=== PATIENT | male | born 1935 | race Caucasian/White ===

== ENCOUNTER → 2018-03-28 11:58 | Outpatient (CLI) | payer MEDICARE, OTHER, SELFPAY ==
[2018-03-28 12:47] LABS: INR 2.6 (0.9-1.3); Prothrombin Time 28.6 SECONDS (10.1-12.7)
[2018-03-28 12:50] LABS: Add Manual Diff / Slide Review NO; Basophils Percent Auto 0.5 % (0-2); Eosinophils Percent Auto 1.3 % (2-4); Hematocrit 38.5 % (41-53); Hemoglobin 13.3 g/dL (13.5-17.5); Lymphocytes Percent Auto 25.3 % (25-40); Mean Corpuscular HGB Conc 34.5 % (30-36); Mean Corpuscular Hemoglobin 34.6 PG (26-34); Mean Corpuscular Volume 100.4 fL (80-100); Monocytes Percent Auto 7.7 % (3-14); Neutrophils Absolute Auto 5300 /uL (3000-5900); Neutrophils Percent Auto 65.2 % (50-75); Platelet Count 180 X10^3/uL (150-400); Red Blood Cell Count 3.83 X10^6/uL (4.5-5.9); Red Cell Distribution Width 13.1 % (11.6-14.8); White Blood Cell Count 8.1 X10^3/uL (4.5-11.0)
[2018-03-28 13:37] LABS: BUN Creatinine Ratio 29.1 (6-22); Blood Urea Nitrogen 32 mg/dL (9-20); Calcium 9.4 mg/dL (8.4-10.2); Carbon Dioxide 29 mmol/L (22-32); Chloride 102 mmol/L (98-107); Estimated Glomerular Filt Rate > 60.0 mL/min (>60); Glucose 95 mg/dL (80-110); HEMOLYSIS < 15 (0-50); Potassium 4.6 mmol/L (3.4-5.1); Sodium 143 mmol/L (137-145)
== END ==
PROVIDERS: PCP Family Medicine; Visit Provider Podiatrist
DX: Z01.812 Encounter for preprocedural laboratory examination (principal)
CPT/HCPCS: 36415; 80048; 85025; 85610

== ENCOUNTER 2018-04-06 10:28 | Day surgery (SDC) | payer MEDICARE, OTHER, SELFPAY ==
[2018-03-30 09:38] VITALS: BMI 32.2
[2018-04-06 11:08] VITALS: BP 122/71; PULSE 66; RESP 15; TEMP 36.5; O2SAT 99; BMI 29.9
[2018-04-06] MEDS: LACTATED RINGERS 1,000 ML 42 ML IV (12:30)
[2018-04-06] MEDS: CEFAZOLIN VIAL 1 GM in SODIUM CHLORIDE 0.9% 100 ML 200 ML IV (13:20)
--- NOTE | 2018-04-06 13:44 | SUR.OPER ---
Supine on padded OR bed, head on pillow, arms secured on padded arm boards at <90 degrees abduction, right leg is under control of surgeon, left leg is taped over blanket to the table, safety belt at thigh.
[2018-04-06] MEDS: LIDOCAINE 2% INJ SDV 5 ML INJ (13:52)
[2018-04-06] MEDS: BUPIVACAINE 0.5% (PF) VIAL 10 ML INJ (14:04)
[2018-04-06 14:20] VITALS: BP 122/77; PULSE 55; RESP 18; TEMP 36.7; O2SAT 97
--- NOTE | 2018-04-06 14:24 | PM.OP.1 ---
Operative Date/Time/Diagnoses Date of procedure: 04/06/18 Time of procedure: 14:24 Pre-op diagnosis: Chronic toe ulcer, hammertoe, right foot Post-op diagnosis: same Procedure & Clinicians Procedure: Hammertoe repair by DIPJ arthroplasty, 2nd toe Right Hammertoe repair by DIPJ arthroplasty, 3rd toe Right Same procedure as scheduled: Yes Indications: Chronic toe ulcer, contracted hammertoe Surgeon: Anuel Ocasio Click Yes if Unassisted: Yes Anesthesia Type: General and Local Operative Notes Closure Type: primary Specimen(s): none sent Estimated Blood Loss (mL): 3 Blood products transfused: none Procedure in detail: Preoperative diagnosis: Due to the chronic toe ulcerations coupled with 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 No guarantees were made or implied regarding surgical outcome. Operation patient was taken from the day surgery back to the OR on a gurney after having been given IV antibiotic prophylaxis. He was placed on the OR table in the supine position. IV sedation was initially began followed by local anesthetic block of the 2nd and 3rd toes right foot. [place] through the procedure, the patient was moving so much he had to be converted to a general. The right foot was prepped and draped in usual sterile fashion from toes to knee. Procedure 1: hammertoe repair by DIP joint arthroplasty, 2nd toe right foot ([id number]) Attention was directed toward the dorsum of the right 2nd toe. A longitudinal incision of approximately 1.5 cm was placed, just behind the DIP joint. Blunt dissection was carried down to the extensor tendon which was transversely sectioned. The DIP joint was opened and then the distal portion of the head of the intermediate phalanx transversely sectioned with a rongeur and bone cutter. The head of the intermediate phalanx was then removed. The wound was irrigated with antibiotic solution. Extensor tendon was repaired with 4 O Vicryl. The skin was then reapposed with 4 O nylon using simple interrupted and horizontal mattress sutures. Procedure 2: Hammertoe repair by DIP joint arthroplasty, 3rd toe right foot ([id number]) Attention was then directed toward the dorsum of the right 3rd toe. The exact same procedure was then performed on this toe as described above, with no variation in technique or outcome. Both incisions were dressed with sterile compression bandages. Patient tolerated the procedures and anesthesia well without any apparent complications. He left the OR with vital signs stable digital perfusion intact. He will be followed up in the [place] office next week. Complications: none Condition: stable Disposition: PACU Plan for aftercare: FU in my [place] office. Appt already made.
[2018-04-06 14:25] VITALS: BP 118/75; PULSE 63; RESP 17; O2SAT 97
[2018-04-06 14:30] VITALS: BP 127/82; PULSE 60; RESP 13; O2SAT 99
--- NOTE | 2018-04-06 14:31 | P.OP_ITS ---
Operative Date/Time/Diagnoses Date of procedure: 04/06/18 Time of procedure: 14:24 Pre-op diagnosis: Chronic toe ulcer, hammertoe, right foot Post-op diagnosis: same Procedure & Clinicians Procedure: Hammertoe repair by DIPJ arthroplasty, 2nd toe Right Hammertoe repair by DIPJ arthroplasty, 3rd toe Right Same procedure as scheduled: Yes Indications: Chronic toe ulcer, contracted hammertoe Surgeon: Anuel Ocasio Click Yes if Unassisted: Yes Anesthesia Type: General and Local Operative Notes Closure Type: primary Specimen(s): none sent Estimated Blood Loss (mL): 3 Blood products transfused: none Procedure in detail: Preoperative diagnosis: Due to the chronic toe ulcerations coupled with 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 No guarantees were made or implied regarding surgical outcome. Operation patient was taken from the day surgery back to the OR on a gurney after having been given IV antibiotic prophylaxis. He was placed on the OR table in the supine position. IV sedation was initially began followed by local anesthetic block of the 2nd and 3rd toes right foot. [place] through the procedure, the patient was moving so much he had to be converted to a general. The right foot was prepped and draped in usual sterile fashion from toes to knee. Procedure 1: hammertoe repair by DIP joint arthroplasty, 2nd toe right foot ( [id number]) Attention was directed toward the dorsum of the right 2nd toe. A longitudinal incision of approximately 1.5 cm was placed, just behind the DIP joint. Blunt dissection was carried down to the extensor tendon which was transversely sectioned. The DIP joint was opened and then the distal portion of the head of the intermediate phalanx transversely sectioned with a rongeur and bone cutter. The head of the intermediate phalanx was then removed. The wound was irrigated with antibiotic solution. Extensor tendon was repaired with 4 O Vicryl. The skin was then reapposed with 4 O nylon using simple interrupted and horizontal mattress sutures. Procedure 2: Hammertoe repair by DIP joint arthroplasty, 3rd toe right foot ( [id number]) Attention was then directed toward the dorsum of the right 3rd toe. The exact same procedure was then performed on this toe as described above, with no variation in technique or outcome. Both incisions were dressed with sterile compression bandages. Patient tolerated the procedures and anesthesia well without any apparent complications. He left the OR with vital signs stable digital perfusion intact. He will be followed up in the [place] office next week. Complications: none Condition: stable Disposition: PACU Plan for aftercare: FU in my [place] office. Appt already made.
[2018-04-06 15:15] VITALS: BP 128/79; PULSE 79; RESP 18; TEMP 36.6; O2SAT 97
== END 2018-04-06 15:20 ==
LOC: OR 10:29
PROVIDERS: PCP Family Medicine; Visit Provider Podiatrist
PROC: (CPT 28285; principal; 2018-04-06 12:15)
DX: M20.41 Other hammer toe(s) (acquired), right foot (principal); L97.511 Non-pressure chronic ulcer of other part of right foot limited to breakdown of skin; G62.9 Polyneuropathy, unspecified; Z79.01 Long term (current) use of anticoagulants
CPT/HCPCS: 28285 ×2; J0690; J2704

== ENCOUNTER → 2019-03-01 10:13 | Outpatient (CLI) | payer MEDICARE, OTHER, SELFPAY | PROVIDERS: PCP Family Medicine; Visit Provider Family Medicine | DX: G60.3 Idiopathic progressive neuropathy (principal); L97.515 Non-pressure chronic ulcer of other part of right foot with muscle involvement without evidence of necrosis; I73.9 Peripheral vascular disease, unspecified; I27.20 Pulmonary hypertension, unspecified | CPT/HCPCS: 11042; 73630; 87070; 87077; 87147; 87205; 99213; 99214 ==

== ENCOUNTER → 2019-03-01 12:03 | Outpatient (CLI) | payer MEDICARE, OTHER, SELFPAY ==
--- NOTE | 2019-03-01 | DI.RAD.S_ITS ---
PROCEDURE: XR FOOT RT MIN 3V INDICATIONS: L97.519 TECHNIQUE: 3 nonweightbearing views of the foot were acquired. COMPARISON: None. FINDINGS: Bones: No acute fractures. Hallux valgus angulation of the right great toe. Degenerative changes of the first metatarsophalangeal joint, third metatarsophalangeal joint, dorsal right mid foot, and tibiotalar joint. Mild periarticular subchondral cystic change involving the head of the right first and fifth metatarsals as well as the base of the first toe proximal phalanx. No cortical disruption. No definite osseous erosions. Overall, normal bone mineralization. Prominent plantar calcaneal and retrocalcaneal spurs. No suspicious bony lesions. Soft tissues: No tibiotalar joint effusion. Achilles tendon appears normal. There are vascular calcifications. IMPRESSION: 1. Right foot without acute osseous abnormalities. 2. Degenerative changes of the right ankle and foot as described above with subchondral cystic change versus possible erosions involving the head of the right first and fifth metatarsals as well as the base of the first toe proximal phalanx. No periarticular osteopenia. These findings may be related to chronic degenerative changes although an inflammatory arthropathy may have a similar appearance. 3. Plantar calcaneal and retrocalcaneal enthesopathy. Dictated by: John Mcdonald M.D. on 03/01/2019 at 14:39 Approved by: John Mcdonald M.D. on 03/01/2019 at 14:44
== END ==
PROVIDERS: PCP Family Medicine; Visit Provider Family Medicine
DX: L97.519 Non-pressure chronic ulcer of other part of right foot with unspecified severity (principal); G90.09 Other idiopathic peripheral autonomic neuropathy; M77.31 Calcaneal spur, right foot
CPT/HCPCS: 73630

== ENCOUNTER → 2019-03-08 11:14 | Outpatient (CLI) | payer MEDICARE, OTHER, SELFPAY | PROVIDERS: PCP Family Medicine; Visit Provider Family Medicine | DX: G60.9 Hereditary and idiopathic neuropathy, unspecified (principal); L97.515 Non-pressure chronic ulcer of other part of right foot with muscle involvement without evidence of necrosis; I73.9 Peripheral vascular disease, unspecified | CPT/HCPCS: 11042 ==

== ENCOUNTER → 2019-03-19 08:44 | Outpatient (CLI) | payer MEDICARE, OTHER, SELFPAY | PROVIDERS: PCP Family Medicine; Visit Provider Family Medicine | DX: G60.9 Hereditary and idiopathic neuropathy, unspecified (principal); L97.515 Non-pressure chronic ulcer of other part of right foot with muscle involvement without evidence of necrosis; I73.9 Peripheral vascular disease, unspecified | CPT/HCPCS: 11042 ==

== ENCOUNTER → 2019-03-19 10:03 | Outpatient (CLI) | payer MEDICARE, OTHER, SELFPAY ==
[2019-03-19 10:23] LABS: Add Manual Diff / Slide Review NO; Basophils Absolute Auto 100 /uL (0-100); Basophils Percent Auto 0.8 % (0-2); Eosinophils Absolute Auto 200 /uL (0-450); Eosinophils Percent Auto 1.4 % (2-4); Hematocrit 29.1 % (41-53); Hemoglobin 9.7 g/dL (13.5-17.5); Lymphocytes Absolute Auto 2000 /uL (1100-4500); Lymphocytes Percent Auto 17.2 % (25-40); Mean Corpuscular HGB Conc 33.5 % (30-36); Mean Corpuscular Volume 98.4 fL (80-100); Monocytes Absolute Auto 800 /uL (0-900); Monocytes Percent Auto 6.7 % (3-14); Neutrophils Absolute Auto 8800 /uL (1500-7000); Neutrophils Percent Auto 73.9 % (50-75); Platelet Count 261 X10^3/uL (150-400); Red Blood Cell Count 2.95 X10^6/uL (4.5-5.9); Red Cell Distribution Width 17.1 % (11.6-14.8); White Blood Cell Count 11.9 X10^3/uL (4.5-11.0)
[2019-03-19 10:30] LABS: INR 1.2 (0.9-1.3); Prothrombin Time 14.4 SECONDS (10.1-12.7)
== END ==
PROVIDERS: Family Provider Family Medicine; PCP Family Medicine; Visit Provider Internal Medicine
DX: D62 Acute posthemorrhagic anemia (principal)
CPT/HCPCS: 36415; 85025; 85610

== ENCOUNTER 2019-03-20 07:16 | Day surgery (SDC) | payer MEDICARE, OTHER, SELFPAY ==
--- NOTE | 2019-03-20 | PATH_ITS ---
[facility] Accession Number: [id number] . 01 Material submitted: . colon - TRANSVERSE COLON POLYP . 01 Clinical history: . COLONOSCOPY . 02 Diagnosis: Transverse Colon, Polyp, Biopsy: Tubular adenoma. V 03/21/2019 1335 Local . 02 Electronically signed: . Bessie Looney MD, Pathologist NPI- [id number] . 01 Gross description: . TRANSVERSE COLON POLYP: Received in formalin are multiple fragment(s) of benjamin, soft tissue measuring 0.1 x 0.1 x 0.1 cm to 0.6 x 0.6 x 0.5 cm which is entirely submitted and submitted entirely in 1 cassette(s) /[facility] [place] 03/20/2019 1914 Local . 02 Pathologist provided ICD-10: D12.3 . 02 CPT . 705815 Performed at: 01 [facility] [address], [place], [place] [id number] MD Shimon Byers MD Phone: [phone] Performed at: [address] [facility] [address] [place], [place] [id number] MD Bessie Looney MD Phone: [phone]
[2019-03-20 07:49] VITALS: BP 110/68; PULSE 79; RESP 16; TEMP 36.6; O2SAT 99; BMI 28.5
[2019-03-20] MEDS: SODIUM CHLORIDE 0.9% 1,000 ML 42 ML IV (07:49)
--- NOTE | 2019-03-20 08:36 | PM.PREOP ---
Pre-operative Note Interval Note History & Physical reviewed/Exam performed by Physician: Yes Changes to H&P: No H&P completed within 30 days and has changed as indicated here:: )ff coumadin for 7 days ASA Class (for procedural sedation): III
--- NOTE | 2019-03-20 08:49 | PM.OP.ENDO ---
Operative Date/Time/Diagnoses Date of procedure: 03/20/19 Time of procedure: 08:49 Pre-op diagnosis: See indication and findings Procedure & Clinicians Study performed: Colonoscopy Same procedure as scheduled: Yes Indications: Hematochezia on Coumadin Surgeon: Silviano Hart Procedure Notes Procedure in detail: After informed consent was obtained the patient was placed in the left lateral decubitus position. The video colonoscope was introduced in the rectum slowly advanced to the cecum. Preparation was fair to good. On slow withdrawal mucosa was carefully examined. The scope was removed. The patient tolerated procedure well. Blood loss none Complications none Findings 1. Extensive diverticulosis throughout the entire colon but particularly present on the left side. 2. 6 mm polyp in the proximal transverse colon cold snared and removed completely 3. Moderate internal hemorrhoids on retroflexed view. Again most likely that Mr. Rollins had a diverticular bleed. He would be at risk for further bleeding on medication. I will be in touch with Dr. Corona regarding his case but for the time being I would just keep him off of his Coumadin for least a week. CC: Dr. Corona
[2019-03-20] MEDS: fentaNYL 250 MCG/5 ML INJ IV (08:54)
[2019-03-20] MEDS: MIDAZOLAM 5 MG/5 ML VIAL IV (08:54)
[2019-03-20 08:56] VITALS: BP 106/73; PULSE 73; RESP 15; TEMP 36.2; O2SAT 99
[2019-03-20 09:01] VITALS: BP 110/74; PULSE 83; RESP 15; O2SAT 99
[2019-03-20 09:06] VITALS: BP 108/75; PULSE 74; RESP 12; O2SAT 99
[2019-03-20 09:15] VITALS: BP 109/77; PULSE 70; RESP 16; TEMP 36.2; O2SAT 99
[2019-03-20 09:36] VITALS: BP 122/77; PULSE 79; RESP 16; TEMP 36.6; O2SAT 97
== END 2019-03-20 09:41 | disposition home or self-care (01) ==
PROVIDERS: Family Provider Family Medicine; PCP Family Medicine; Visit Provider Internal Medicine Gastroenterology
PROC: 0DJD8ZZ Inspection of Lower Intestinal Tract, Via Natural or Artificial Opening Endoscopic (ICD-10-PCS; CPT 45378; principal; 2019-03-20 08:30)
DX: K92.1 Melena (principal); K64.8 Other hemorrhoids; K57.30 Diverticulosis of large intestine without perforation or abscess without bleeding; D12.3 Benign neoplasm of transverse colon
CPT/HCPCS: 45385; J2250; J3010

== ENCOUNTER → 2019-03-26 08:52 | Outpatient (CLI) | payer MEDICARE, OTHER, SELFPAY | PROVIDERS: Family Provider Family Medicine; PCP Family Medicine; Visit Provider Family Medicine | DX: G60.3 Idiopathic progressive neuropathy (principal); L97.515 Non-pressure chronic ulcer of other part of right foot with muscle involvement without evidence of necrosis; I73.9 Peripheral vascular disease, unspecified | CPT/HCPCS: 11042 ==

== ENCOUNTER → 2019-03-26 10:10 | Outpatient (CLI) | payer MEDICARE, OTHER, SELFPAY ==
--- NOTE | 2019-03-26 | DI.US.S_ITS ---
PROCEDURE: US ARTERIAL DUPLEX LE RT INDICATIONS: PERIPHERAL VASCULAR DISEASE, UNSPECIFIED TECHNIQUE: Color and pulse Doppler interrogation was performed of the right lower extremity arterial system, with image documentation. COMPARISON: None. FINDINGS: Normal-appearing, triphasic and biphasic waveforms are seen throughout. The flow velocities are likewise within normal limits. No focal area of increased flow velocity is seen to suggest a focal stenosis. Antegrade flow is confirmed to the distal aspects of each of the trifurcation vessels. Atherosclerotic plaque can be seen, which is most prominent within the right femoral artery and distal posterior tibial artery. IMPRESSION: No hemodynamically significant stenosis can be seen. Dictated by: Richie Desir M.D. on 03/26/2019 at 15:48 Approved by: Richie Desir M.D. on 03/26/2019 at 15:49
== END ==
PROVIDERS: Family Provider Family Medicine; PCP Family Medicine; Visit Provider Family Medicine
DX: I73.9 Peripheral vascular disease, unspecified (principal); L97.515 Non-pressure chronic ulcer of other part of right foot with muscle involvement without evidence of necrosis; G60.3 Idiopathic progressive neuropathy
CPT/HCPCS: 11042; 93926

== ENCOUNTER → 2019-04-02 06:24 | Outpatient (CLI) | payer MEDICARE, OTHER, SELFPAY ==
--- NOTE | 2019-04-02 | DI.MRI.S_ITS ---
PROCEDURE: MR FOOT RT WO/W CON INDICATIONS: Non-pressure chronic ulcer of other part of right foot TECHNIQUE: Noncontrast sagittal T1 spin echo and T2 fast spin echo with fat saturation, long-axis T1 spin echo and T2 fast spin echo with fat saturation; short-axis T1 spin echo, proton density fast spin echo, and T2 fast spin echo with fat saturation through the forefoot. Post-contrast short axis, long axis, and sagittal T1 spin echo with fat saturation through the forefoot. COMPARISON: [facility], CR, XR FOOT 3+ VIEWS RIGHT, 03/21/2018, 11:46. [facility], CR, XR FOOT RT MIN 3V, 03/01/2019, 12:09. FINDINGS: Image quality: Excellent. Bones and joints: No suspicious osseous enhancement. No definite marrow edema is noted. Osteoarthritic changes are noted throughout forefoot joints more prominent at first MTP and interphalangeal joints. Medial deviation and flexion at the fourth PIP joint is seen. Flexion at second through fifth DIP joints also noted. No definite cortical disruption or bony erosion is seen. No intraosseous lesions. Soft tissues: No suspicious soft tissue enhancement. The visualized plantar foot muscles demonstrate normal signal and bulk. Visualized flexor and extensor tendons appear intact, without tenosynovitis. The distal insertions of the peroneus brevis and longus tendons appear intact. The principal Lisfranc ligament appears intact. No soft tissue ganglion cysts or bursal fluid collections. Sagittal images demonstrate no evidence for plantar plate tears. IMPRESSION: 1. Patient's known ulcer involving medial aspect of fourth toe is not well appreciated. No drainable soft tissue fluid collection or significant soft tissue edema and swelling is seen. Tendons and ligaments of forefoot joints are grossly intact. 2. No gross MR evidence of osteomyelitis in midfoot and forefoot. 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 No fracture or dislocation. Dictated by: Chalo Marte M.D. on 04/02/2019 at 10:34 Approved by: Chalo Marte M.D. on 04/02/2019 at 12:59
== END ==
PROVIDERS: Family Provider Family Medicine; PCP Family Medicine; Referring Provider Podiatrist; Visit Provider Family Medicine
DX: L97.516 Non-pressure chronic ulcer of other part of right foot with bone involvement without evidence of necrosis (principal); I87.311 Chronic venous hypertension (idiopathic) with ulcer of right lower extremity; G60.3 Idiopathic progressive neuropathy; R60.0 Localized edema
CPT/HCPCS: 11044; 73720; 99213; A9579

== ENCOUNTER → 2019-04-02 08:45 | Outpatient (CLI) | payer MEDICARE, OTHER, SELFPAY | PROVIDERS: Family Provider Family Medicine; PCP Family Medicine; Visit Provider Family Medicine | DX: I87.311 Chronic venous hypertension (idiopathic) with ulcer of right lower extremity (principal); G60.3 Idiopathic progressive neuropathy; L97.516 Non-pressure chronic ulcer of other part of right foot with bone involvement without evidence of necrosis; I73.9 Peripheral vascular disease, unspecified; R60.0 Localized edema | CPT/HCPCS: 11044; 99213 ==

== ENCOUNTER → 2019-04-10 09:06 | Outpatient (CLI) | payer MEDICARE, OTHER, SELFPAY | PROVIDERS: Family Provider Family Medicine; PCP Family Medicine; Visit Provider Family Medicine | DX: G60.3 Idiopathic progressive neuropathy (principal); L97.514 Non-pressure chronic ulcer of other part of right foot with necrosis of bone; M86.671 Other chronic osteomyelitis, right ankle and foot | CPT/HCPCS: 11042 ==

== ENCOUNTER → 2019-04-17 08:57 | Outpatient (CLI) | payer MEDICARE, OTHER, SELFPAY | PROVIDERS: Family Provider Family Medicine; PCP Family Medicine; Visit Provider Family Medicine | DX: M86.671 Other chronic osteomyelitis, right ankle and foot (principal); L97.513 Non-pressure chronic ulcer of other part of right foot with necrosis of muscle; G60.9 Hereditary and idiopathic neuropathy, unspecified | CPT/HCPCS: 11043 ==

== ENCOUNTER → 2019-04-24 08:31 | Outpatient (CLI) | payer MEDICARE, OTHER, SELFPAY | PROVIDERS: Family Provider Family Medicine; PCP Family Medicine; Visit Provider Family Medicine | DX: G60.3 Idiopathic progressive neuropathy (principal); L97.514 Non-pressure chronic ulcer of other part of right foot with necrosis of bone; M86.671 Other chronic osteomyelitis, right ankle and foot; R60.0 Localized edema | CPT/HCPCS: 11043 ==

== ENCOUNTER → 2019-05-01 08:35 | Outpatient (CLI) | payer MEDICARE, OTHER, SELFPAY | PROVIDERS: Family Provider Family Medicine; PCP Family Medicine; Visit Provider Family Medicine | DX: G60.9 Hereditary and idiopathic neuropathy, unspecified (principal); L97.516 Non-pressure chronic ulcer of other part of right foot with bone involvement without evidence of necrosis; M86.671 Other chronic osteomyelitis, right ankle and foot | CPT/HCPCS: 97597 ==

== ENCOUNTER → 2019-05-08 10:30 | Outpatient (CLI) | payer MEDICARE, OTHER, SELFPAY | PROVIDERS: Family Provider Family Medicine; PCP Family Medicine; Visit Provider Family Medicine | DX: G60.3 Idiopathic progressive neuropathy (principal); M86.671 Other chronic osteomyelitis, right ankle and foot; L97.516 Non-pressure chronic ulcer of other part of right foot with bone involvement without evidence of necrosis | CPT/HCPCS: 11042 ==

== ENCOUNTER → 2019-05-08 14:57 | Outpatient (ROUT) | payer MEDICARE, OTHER, SELFPAY | PROVIDERS: Family Provider Family Medicine; PCP Family Medicine; Visit Provider Family Medicine | DX: L08.9 Local infection of the skin and subcutaneous tissue, unspecified (principal) | CPT/HCPCS: 87070; 87075; 87077; 87205 ==

== ENCOUNTER → 2019-05-15 08:58 | Outpatient (CLI) | payer MEDICARE, OTHER, SELFPAY | PROVIDERS: Family Provider Family Medicine; PCP Family Medicine; Visit Provider Family Medicine | DX: L97.515 Non-pressure chronic ulcer of other part of right foot with muscle involvement without evidence of necrosis (principal); M86.671 Other chronic osteomyelitis, right ankle and foot; G60.9 Hereditary and idiopathic neuropathy, unspecified; R60.0 Localized edema | CPT/HCPCS: 11042 ==

== ENCOUNTER → 2019-05-20 15:16 | Outpatient (CLI) | payer MEDICARE, OTHER, SELFPAY | PROVIDERS: Family Provider Family Medicine; PCP Family Medicine; Visit Provider Family Medicine | DX: G60.3 Idiopathic progressive neuropathy (principal); L97.514 Non-pressure chronic ulcer of other part of right foot with necrosis of bone; M86.671 Other chronic osteomyelitis, right ankle and foot; R60.0 Localized edema | CPT/HCPCS: 11044; 87070; 87075; 87077; 87147; 87176; 87186; 87205 ==

== ENCOUNTER → 2019-05-28 14:19 | Outpatient (CLI) | payer MEDICARE, OTHER, SELFPAY | PROVIDERS: Family Provider Family Medicine; PCP Family Medicine; Visit Provider Family Medicine | DX: G60.3 Idiopathic progressive neuropathy (principal); M86.671 Other chronic osteomyelitis, right ankle and foot; L97.516 Non-pressure chronic ulcer of other part of right foot with bone involvement without evidence of necrosis | CPT/HCPCS: 11042 ==

== ENCOUNTER → 2019-06-03 12:11 | Outpatient (CLI) | payer MEDICARE, OTHER, SELFPAY ==
[2019-06-03 12:34] LABS: Add Manual Diff / Slide Review NO; Basophils Absolute Auto 100 /uL (0-100); Eosinophils Absolute Auto 100 /uL (0-450); Eosinophils Percent Auto 1.1 % (2-4); Hemoglobin 12.2 g/dL (13.5-17.5); Lymphocytes Absolute Auto 1900 /uL (1100-4500); Lymphocytes Percent Auto 22.6 % (25-40); Mean Corpuscular HGB Conc 33.9 % (30-36); Mean Corpuscular Hemoglobin 33.1 PG (26-34); Mean Corpuscular Volume 97.7 fL (80-100); Monocytes Absolute Auto 700 /uL (0-900); Monocytes Percent Auto 8.4 % (3-14); Neutrophils Absolute Auto 5500 /uL (1500-7000); Neutrophils Percent Auto 66.9 % (50-75); Platelet Count 196 X10^3/uL (150-400); Red Blood Cell Count 3.68 X10^6/uL (4.5-5.9); Red Cell Distribution Width 14.4 % (11.6-14.8); White Blood Cell Count 8.3 X10^3/uL (4.5-11.0)
[2019-06-03 12:42] LABS: INR 1.2 (0.9-1.3); Prothrombin Time 14.1 SECONDS (10.1-12.7)
[2019-06-03 12:45] LABS: PTT Partial Thromboplastin Tim 38 SECONDS (26.4-36.2)
[2019-06-03 13:03] LABS: BUN Creatinine Ratio 27.8 (6-22); Blood Urea Nitrogen 25 mg/dL (9-20); Calcium 8.9 mg/dL (8.4-10.2); Carbon Dioxide 27 mmol/L (22-32); Chloride 103 mmol/L (98-107); Estimated Glomerular Filt Rate > 60.0 mL/min (>60); Glucose 90 mg/dL (80-110); HEMOLYSIS < 15 (0-50); Potassium 4.7 mmol/L (3.4-5.1); Sodium 137 mmol/L (137-145)
== END ==
PROVIDERS: Family Provider Family Medicine; PCP Family Medicine; Visit Provider Podiatrist
DX: Z01.812 Encounter for preprocedural laboratory examination (principal); Z51.81 Encounter for therapeutic drug level monitoring
CPT/HCPCS: 36415; 80048; 85025; 85610; 85730

== ENCOUNTER → 2019-06-04 14:04 | Outpatient (CLI) | payer MEDICARE, OTHER, SELFPAY | PROVIDERS: Family Provider Family Medicine; PCP Family Medicine; Visit Provider Family Medicine | DX: M86.671 Other chronic osteomyelitis, right ankle and foot (principal); L97.516 Non-pressure chronic ulcer of other part of right foot with bone involvement without evidence of necrosis; G60.9 Hereditary and idiopathic neuropathy, unspecified; R60.0 Localized edema | CPT/HCPCS: 99213 ==

== ENCOUNTER 2019-06-07 12:41 | Day surgery (SDC) | payer MEDICARE, OTHER, SELFPAY ==
[2019-06-05 07:47] VITALS: BMI 32.2
--- NOTE | 2019-06-07 | PATH_ITS ---
[facility] Accession Number: [id number] . 01 Material submitted: . foot - SECOND TOE, RIGHT FOOT . 01 Clinical history: . RIGHT 2ND TOE AMPUTATION OSTEOMYELITIS . 01 Diagnosis: Second Toe, Right Foot, Amputation: Actively inflamed chronic ulcer of skin and arteriosclerosis. Focal changes consistent with subacute osteomyelitis. Skin, soft tissue, and bone resection margins appear viable. [facility] 06/11/2019 1546 Local . 01 Comment: Focal acute inflammation is identified at the skin/soft tissue margins of resection. . 01 Electronically signed: . Samantha Zuniga MD, Pathologist NPI- [id number] . 01 Gross description: . Received in formalin, labeled second toe, right foot osteomyelitis, is a toe (3.5 cm AP, 2.1 cm SI, 2.2 cm ML) and a separate resected piece of bone (length-2.2 cm, diameter-0.6 cm). The toe has santos-pink flaky skin containing a hole (0.8 x 0.5 cm) on a central posteromedial aspect 0.5 cm from the superior and 0.3 cm from the inferior skin and soft tissue resection margins. The underlying bone is easily sliced with a scalpel. The separate bone is hard and cannot be sliced with a scalpel. Ink code: black-superior; orange-inferior. Section code: (A1) skin and soft tissue resection margins; (A2) proximal bone, sales representative uniforms serial sections; (A3) hole within skin, sales representative uniforms; (A4) underlying bone, sales representative uniforms serial section; (A5) separate bone, resection margins en face and additional sales representative uniforms serial sections. Note: The bone sections have been decalcified. ([id number]) /[facility] 06/08/2019 2150 Local . 01 Pathologist provided ICD-10: L97.519 . 01 CPT . 725314, 418301, [id number] Performed at: [address] [id number] MD Shimon Byers MD Phone: [phone]
[2019-06-07 13:26] VITALS: BP 144/80; PULSE 72; RESP 15; TEMP 36.2; O2SAT 98; BMI 31.8
--- NOTE | 2019-06-07 13:52 | PM.OP.1 ---
Procedure & Clinicians Procedure: Amputation of 2nd toe at MTPJ, right foot Same procedure as scheduled: Yes Indications: Chronic ulceration and osteomyelitis, 2nd toe, right foot Surgeon: Anuel Ocasio Click Yes if Unassisted: Yes Anesthesia Type: Local Operative Notes Closure Type: primary Specimen(s): other (infected amputated 2ndt toe, right foot) Estimated Blood Loss (mL): 10 Blood products transfused: none Tourniquet time (min): 0 Procedure in detail: Indications: This patient has battled a chronic ulceration on his right 2nd toe secondary to peripheral neuropathy. He has failed to heal adequately and ended up developing an osteomyelitis. Due to the fact that the underlying infection has not responded to oral antibiotics, surgical amputation was recommended. Preoperative vascular evaluation indicated that he had adequate perfusion to heal from such a toe amputation. However, no guarantees were made or implied regarding surgical outcome. Operation: The patient was taken from the day surgery area back to the OR on a gurney after having received IV antibiotic prophylaxis. Unfortunately, he failed to follow the preoperative instructions and did admit to having some soup approximately 3 hours ago. Therefore, the procedure is planned on being done under only a local anesthetic without sedation. The patient understood and consented for that. He was placed on the OR table in the supine position. Appropriate monitoring devices were applied and due to some underlying medical issues and my request, the patient was monitored throughout by the anesthesiologist. The right forefoot specifically around the 2nd ray was then anesthetized with a 50:50 lidocaine Procedure: Amputation, 2nd toe at MTP joint, right foot Attention was directed toward the base of the 2nd toe. A modified racquet shaped incision was made over the base of the 2nd toe, creating a longer plantar flap. Careful dissection was carried down to identify neurovascular structures and cauterizing the vessels and putting the digital nerves under tension and allowing them to retract proximally. Flexor and extensor tendons were identified, put under tension and severed allowing retraction. This point then the soft spongy osteomyelitic bone was obvious at the head of the proximal phalanx. The rest the proximal phalanx seemed quite solid and hard, normal bone consistency. A blunt [place] elevator was used to free up the proximal phalanx all the way back to the base. Bone cutting forceps was then used to cut the bony phalanx there. Aggressive antibiotic irrigation was performed. Hemostasis was excellent. Wound closure was then performed with combination of horizontal mattress simple interrupted sutures of 3 0 nylon. No postop anesthetic was required. A light gauze compression bandage was applied. The patient tolerated the procedure and local anesthesia well without any apparent complications. He left the OR with vital signs stable and digital perfusion intact. He will be allowed weight-bearing status on the foot in a postoperative shoe. He will be followed up next week in the [place] office. Complications: none Post-operative Condition: stable Disposition: same day surgery Plan for aftercare: Patient has post-op appointment already made. Also has Rx for post-op pain meds if needed.
[2019-06-07] MEDS: LACTATED RINGERS 1,000 ML 42 ML IV (13:53)
--- NOTE | 2019-06-07 14:00 | PM.PREOP ---
Pre-operative Note Interval Note History & Physical reviewed/Exam performed by Physician: Yes Changes to H&P: No H&P completed within 30 days and has changed as indicated here:: none
[2019-06-07] MEDS: CEFAZOLIN 2 GM/100 ML FROZ.PIGGY IV (14:20)
[2019-06-07] MEDS: LIDOCAINE 2% INJ MDV 20 ML INJ (14:43)
[2019-06-07] MEDS: LIDOCAINE 2% W/EPI INJ 20 ML INJ (14:45)
--- NOTE | 2019-06-07 14:49 | SUR.OPER ---
Supine on padded OR bed, head on pillows, arms at sides resting on padded arm boards at <90 degrees abduction, legs uncrossed,pillow x 2 under non-operative leg, safety belt at thigh, tape over blanket over non-operative leg.
[2019-06-07 15:20] VITALS: BP 146/83; PULSE 68; RESP 20; TEMP 36.3; O2SAT 99
--- NOTE | 2019-06-07 15:44 | SUR.PHASEII ---
Patient denies any pain at this time. AAO x 3. Demonstrated to patient and family how to apply post-op shoe. No needs voiced at this time. Patient drank 2 cups of cranberry juice without difficulty.
== END 2019-06-07 15:47 | disposition home or self-care (01) ==
PROVIDERS: Family Provider Family Medicine; PCP Family Medicine; Visit Provider Podiatrist
PROC: (CPT 28820; principal; 2019-06-07 14:15)
DX: M86.8X8 Other osteomyelitis, other site (principal); G62.9 Polyneuropathy, unspecified; L97.514 Non-pressure chronic ulcer of other part of right foot with necrosis of bone
CPT/HCPCS: 28820; J0690; J3010